=== PATIENT | female | born 1980 | race Two or more races ===

== ENCOUNTER 2024-10-19 11:30 | Emergency (ER) | payer OTHER ==
[~2024-10-19] VITALS: Ht 170.2 cm; Wt 81.6 kg
[2024-10-19] MEDS ORDERED: FAMOtidine 10 MG/ML (4ML VIAL) IV STA (12:12)
[2024-10-19] MEDS ORDERED: RINGERS SOLUTION,LACTATED 1,000 ML IV STA (12:13)
[2024-10-19] MEDS ORDERED: ONDANSETRON HCL 2 MG/ML VIAL IV ONE (12:15)
[2024-10-19] MEDS ORDERED: METOCLOPRAMIDE HCL 10 MG in DEXTROSE 5 % IN WATER 50 ML IV ONE (12:15)
[2024-10-19] MEDS ORDERED: FAMOTIDINE/PF 20 MG/2 ML VIAL ONE (12:19)
[2024-10-19] MEDS ORDERED: ONDANSETRON HCL 2 MG/ML VIAL ONE (12:20)
[2024-10-19] MEDS ORDERED: METOCLOPRAMIDE HCL 5 MG/ML VIAL ONE (12:20)
[2024-10-19 12:58] LABS: MEAN CORPUSCULAR HGB CONC 29.5 g/dl (32.0-36.0); PLATELET COUNT 437 K/uL (150-450); RED BLOOD COUNT 4.91 M/uL (4.00-6.00); RED CELL DISTRIBUTION WIDTH 20.6 % (11.5-14.5)
[2024-10-19 13:01] LABS: MEAN CORPUSCULAR HEMOGLOBIN 16.2 pg (27.00-32.0)
[2024-10-19 13:34] LABS: CALCIUM 9.1 mg/dL (8.5-10.1); CREATININE SERUM 0.76 mg/dL (0.55-1.02); GFR 82.3; POTASSIUM 3.93 mEq/L (3.5-5.1)
== END 2024-10-19 17:11 | disposition home or self-care (01) ==
LOC: ER 11:30
PROVIDERS: General Practice
DX: K52.9 Noninfective gastroenteritis and colitis, unspecified (principal); R11.10 Vomiting, unspecified
CPT/HCPCS: 36415; 96365; 99282; J2405; J2765; J3490